=== PATIENT | female | born 1995 | race Two or more races ===

== ENCOUNTER 2018-05-17 12:24 | Emergency (ER) | payer SELFPAY ==
[~2018-05-17] VITALS: Ht 154.9 cm; Wt 72.6 kg
[2018-05-17] MEDS ORDERED: LIDO:MAALOX 1:1 20 ML SINGLE DOSE. SWSW ONE (13:15)
--- NOTE | 2018-05-17 13:29 | PHYS DOC ---
Past Medical History Past Medical History: No Pertinent History Past Surgical History: No Surgical History Alcohol Use: None Drug Use: None Adult General Chief Complaint Chief Complaint: ABDOMINAL PAIN HPI HPI Patient is a 23 year old female presents with chief complaint of upper abdominal pain intermittent 2 month constant 12 hours described as sharp worse after eating associated with nausea does come and random sometimes nonradiating no fever no dysuria no chest pain no other symptoms. No previous surgical history Review of Systems Review of Systems Constitutional: Denies fever or chills [] Eyes: Denies change in visual acuity, redness, or eye pain [] HENT: Denies nasal congestion or sore throat [] Respiratory: Denies cough or shortness of breath [] Musculoskeletal: Denies back pain or joint pain [] Integument: Denies rash or skin lesions [] Neurologic: Denies headache, focal weakness or sensory changes [] Endocrine: Denies polyuria or polydipsia [] All other systems were reviewed and found to be within normal limits, except as documented in this note. Current Medications Current Medications Current Medications Medications (Trade) Dose Ordered Sig/Leonie Start Time Stop Time Status Last Admin Dose Admin Multi-Ingredient Mouthwash/Gargle (Gi Cocktail) 20 ml 1X ONCE 05/17/18 13:15 05/17/18 13:16 DC 05/17/18 13:51 20 ML Allergies Allergies Allergies Coded Allergies Type Severity Reaction Last Updated Verified No Known Drug Allergies 05/19/15 No Physical Exam Physical Exam Constitutional: Well developed, well nourished, no acute distress, non-toxic appearance. [] HENT: Normocephalic, atraumatic, bilateral external ears normal, oropharynx moist, no oral exudates, nose normal. [] Eyes: PERRLA, EOMI, conjunctiva normal, no discharge. [] Neck: Normal range of motion, no tenderness, supple, no stridor. [] Cardiovascular:Heart rate regular rhythm, no murmur [] Lungs & Thorax: Bilateral breath sounds clear to auscultation [] Abdomen: Bowel sounds normal, soft, epigatric tenderness, no masses, no pulsatile masses. [] neg murphys Skin: Warm, dry, no erythema, no rash. [] Back: No tenderness, no CVA tenderness. [] Extremities: No tenderness, no cyanosis, no clubbing, ROM intact, no edema. [] Neurologic: Alert and oriented X 3, normal motor function, normal sensory function, no focal deficits noted. [] Psychologic: Affect normal, judgement normal, mood normal. [] Current Patient Data Vital Signs Vital Signs Date Time Temp Pulse Resp B/P (MAP) Pulse Ox O2 Delivery O2 Flow Rate FiO2 05/17/18 12:40 97.7 98 18 123/84 (97) 100 Room Air 97.7 Lab Values Laboratory Tests Test 05/17/18 12:49 05/17/18 13:40 POC Urine HCG, Qualitative Hcg negative (Negative) White Blood Count 10.5 x10^3/uL (4.0-11.0) Red Blood Count 4.96 x10^6/uL (3.50-5.40) Hemoglobin 14.4 g/dL (12.0-15.5) Hematocrit 42.5 % (36.0-47.0) Mean Corpuscular Volume 86 fL (79-100) Mean Corpuscular Hemoglobin 29 pg (25-35) Mean Corpuscular Hemoglobin Concent 34 g/dL (31-37) Red Cell Distribution Width 14.3 % (11.5-14.5) Platelet Count 201 x10^3/uL (140-400) Neutrophils (%) (Auto) 77 % (31-73) H Lymphocytes (%) (Auto) 19 % (24-48) L Monocytes (%) (Auto) 3 % (0-9) Eosinophils (%) (Auto) 1 % (0-3) Basophils (%) (Auto) 0 % (0-3) Neutrophils # (Auto) 8.1 x10^3uL (1.8-7.7) H Lymphocytes # (Auto) 1.9 x10^3/uL (1.0-4.8) Monocytes # (Auto) 0.3 x10^3/uL (0.0-1.1) Eosinophils # (Auto) 0.1 x10^3/uL (0.0-0.7) Basophils # (Auto) 0.0 x10^3/uL (0.0-0.2) Sodium Level 140 mmol/L (136-145) Potassium Level 3.9 mmol/L (3.5-5.1) Chloride Level 104 mmol/L (98-107) Carbon Dioxide Level 24 mmol/L (21-32) Anion Gap 12 (6-14) Blood Urea Nitrogen 10 mg/dL (7-20) Creatinine 0.6 mg/dL (0.6-1.0) Estimated GFR (Cockcroft-Gault) 123.9 BUN/Creatinine Ratio 17 (6-20) Glucose Level 95 mg/dL (70-99) Calcium Level 9.6 mg/dL (8.5-10.1) Total Bilirubin 0.4 mg/dL (0.2-1.0) Aspartate Amino Transferase (AST) 15 U/L (15-37) Alanine Aminotransferase (ALT) 17 U/L (14-59) Alkaline Phosphatase 118 U/L (46-116) H Total Protein 8.6 g/dL (6.4-8.2) H Albumin 4.0 g/dL (3.4-5.0) Albumin/Globulin Ratio 0.9 (1.0-1.7) L Lipase 90 U/L (73-393) Laboratory Tests 05/17/18 13:40 Laboratory Tests 05/17/18 13:40 EKG EKG [] Radiology/Procedures Radiology/Procedures [] Impressions: Impression: Polyp within the gallbladder likely hyperplastic. Ultrasound exam in 6 months assess stability is recommended. No acute process. Electronically signed by: Miguel Muir MD (05/17/2018 1:54 PM) [id number] DICTATED and SIGNED BY: GREGORIO RAMIREZ MD DATE: 05/17/18 1351 Course & Med Decision Making Course & Med Decision Making Pertinent Labs and Imaging studies reviewed. (See chart for details) 23-year-old male present with equal in upper abdominal discomfort lab workup and ultrasound is essentially unremarkable. POLYP noted advised follow-up within 6 months she understands trial of omeprazole return precautions were reviewed and she voiced understanding. Likely gastritis[] Dragon Disclaimer Dragon Disclaimer This electronic medical record was generated, in whole or in part, using a voice recognition dictation system. Departure Departure Impression: Primary Impression: Gastritis Disposition: 01 HOME, SELF-CARE Condition: STABLE Referrals: NO PCP (PCP) Scripts Omeprazole (OMEPRAZOLE) 20 Mg Tablet.dr 1 TAB PO DAILY, #30 TAB 3 Refills Prov: VENU COON MD 05/17/18 VENU COON MD May 17, 2018 13:29
[2018-05-17 13:55] LABS: BASO % 0 % (0-3); EOS # 0.1 x10^3/uL (0.0-0.7); EOS % 1 % (0-3); HEMATOCRIT 42.5 % (36.0-47.0); HEMOGLOBIN 14.4 g/dL (12.0-15.5); LYMPH # 1.9 x10^3/uL (1.0-4.8); LYMPH % 19 % (24-48); MEAN CORPUSCULAR HEMOGLOBIN 29 pg (25-35); MEAN CORPUSCULAR HGB CONC 34 g/dL (31-37); MEAN CORPUSCULAR VOLUME 86 fL (79-100); MONO # 0.3 x10^3/uL (0.0-1.1); MONO % 3 % (0-9); NEUT # 8.1 x10^3uL (1.8-7.7); NEUT % 77 % (31-73); PLATELET COUNT 201 x10^3/uL (140-400); RED BLOOD COUNT 4.96 x10^6/uL (3.50-5.40); RED CELL DISTRIBUTION WIDTH 14.3 % (11.5-14.5); WHITE BLOOD COUNT 10.5 x10^3/uL (4.0-11.0)
--- NOTE | 2018-05-17 13:58 | RAD ---
Examination: ABDOMEN LTD History: RUQ PAIN Comparison/Correlation: None Findings: Limited right upper quadrant ultrasound exam was performed. Portal venous flow is normal. Common bile duct diameter of 0.4 cm is present. No intrahepatic biliary dilatation. Hepatic echotexture is normal. There is no pericholecystic fluid. Gallbladder wall thickness is normal. Polyp within the gallbladder is present measuring 0.6 cm x 0.7 cm x 1 cm. Right kidney measures 10 cm x 5.5 cm 4.5 cm. No right hydronephrosis. Proximal pancreas is normal. Distal pancreas is obscured by bowel gas. Impression: Polyp within the gallbladder likely hyperplastic. Ultrasound exam in 6 months assess stability is recommended. No acute process. Electronically signed by: Miguel Muir MD (05/17/2018 1:54 PM) [id number]
[2018-05-17 14:11] LABS: CALCIUM 9.6 mg/dL (8.5-10.1); CREATININE 0.6 mg/dL (0.6-1.0); GFR 123.9; POTASSIUM 3.9 mmol/L (3.5-5.1)
[2018-05-17 14:17] LABS: ALBUMIN/GLOBULIN RATIO 0.9 (1.0-1.7); TOTAL BILIRUBIN 0.4 mg/dL (0.2-1.0); TOTAL PROTEIN 8.6 g/dL (6.4-8.2)
[2018-05-17] MEDS ORDERED: OMEP20TA8 PO (14:46)
[2018-05-17 16:10] VITALS: BP 108/77
== END 2018-05-17 16:33 | disposition home or self-care (01) ==
LOC: ER 12:24
DX: K29.70 Gastritis, unspecified, without bleeding (principal)
CPT/HCPCS: 36415; 76705; 80053; 81025; 83690; 85025; 99284-25

== ENCOUNTER 2018-10-22 21:17 | Emergency (ER) | payer SELFPAY ==
[~2018-10-22] VITALS: Ht 154.9 cm; Wt 74.8 kg
[~2018-10-22 21:17] MED LIST: OMEP20TA8 PO
[2018-10-22] MEDS ORDERED: KETOROLAC 15 MG/ML VIAL. IV ONE (22:00)
[2018-10-22] MEDS ORDERED: ONDANSETRON PF 4 MG/2 ML VIAL. IV ONE (22:00)
[2018-10-22 22:14] LABS: BILIRUBIN,URINE NEGATIVE (NEG); CLARITY,URINE CLEAR; COLOR,URINE YELLOW; NITRITE,URINE NEGATIVE (NEG); PH,URINE 5.5; PROTEIN,URINE NEGATIVE (NEG-TRACE)
[2018-10-22 22:22] LABS: BASO % 0 % (0-3); EOS # 0.1 x10^3/uL (0.0-0.7); EOS % 1 % (0-3); HEMATOCRIT 40.1 % (36.0-47.0); HEMOGLOBIN 13.4 g/dL (12.0-15.5); LYMPH # 2.5 x10^3/uL (1.0-4.8); LYMPH % 24 % (24-48); MEAN CORPUSCULAR HEMOGLOBIN 29 pg (25-35); MEAN CORPUSCULAR HGB CONC 34 g/dL (31-37); MEAN CORPUSCULAR VOLUME 87 fL (79-100); MONO # 0.4 x10^3/uL (0.0-1.1); MONO % 4 % (0-9); NEUT # 7.2 x10^3uL (1.8-7.7); NEUT % 70 % (31-73); PLATELET COUNT 183 x10^3/uL (140-400); RED BLOOD COUNT 4.61 x10^6/uL (3.50-5.40); RED CELL DISTRIBUTION WIDTH 13.8 % (11.5-14.5); WHITE BLOOD COUNT 10.2 x10^3/uL (4.0-11.0)
[2018-10-22 22:29] LABS: RBC,URINE 0 /HPF (0-2)
[2018-10-22 22:30] LABS: BACTERIA,URINE FEW /HPF (0-FEW); SQUAMOUS EPITHELIAL CELL,UR MOD /LPF
[2018-10-22 22:33] LABS: GFR 68.7
[2018-10-22 22:39] LABS: ALBUMIN 3.6 g/dL (3.4-5.0); ALBUMIN/GLOBULIN RATIO 0.9 (1.0-1.7); TOTAL BILIRUBIN 0.3 mg/dL (0.2-1.0); TOTAL PROTEIN 7.7 g/dL (6.4-8.2)
[2018-10-22] MEDS ORDERED: fentaNYL PF VIAL 100 MCG/2 ML VIAL IV ONE (23:45)
[2018-10-22] MEDS ORDERED: HYDR-3164 PO (23:53)
--- NOTE | 2018-10-22 23:58 | PHYS DOC ---
Past Medical History Past Medical History: No Pertinent History Past Surgical History: No Surgical History Alcohol Use: None Drug Use: None Adult General Chief Complaint Chief Complaint: PELVIC PAIN HPI HPI Patient is a 23 year old f p/w chief complaint of abdominal pain onset 30 minutes prior to arrival she had this yesterday but it went away on its own. It happened when she was changing the diaper for child. No vaginal discharge no vaginal bleeding no fever mild nausea no prior abdominal surgeries at all. Last menstrual cycle Was 2 weeks ago. Review of Systems Review of Systems Constitutional: Denies fever or chills [] Eyes: Denies change in visual acuity, redness, or eye pain [] HENT: Denies nasal congestion or sore throat [] Respiratory: Denies cough or shortness of breath [] Cardiovascular: Integument: Denies rash or skin lesions [] Neurologic: Denies headache, focal weakness or sensory changes [] Endocrine: Denies polyuria or polydipsia [] All other systems were reviewed and found to be within normal limits, except as documented in this note. Current Medications Current Medications Current Medications Medications (Trade) Dose Ordered Sig/Leonie Start Time Stop Time Status Last Admin Dose Admin Fentanyl Citrate (Fentanyl 2ml Vial) 50 mcg 1X ONCE 10/22/18 23:45 10/22/18 23:46 DC Ketorolac Tromethamine (Toradol 15mg Vial) 15 mg 1X ONCE 10/22/18 22:00 10/22/18 22:01 DC 10/22/18 22:10 15 MG Ondansetron HCl (Zofran) 4 mg 1X ONCE 10/22/18 22:00 10/22/18 22:01 DC 10/22/18 22:10 4 MG Allergies Allergies Allergies Coded Allergies Type Severity Reaction Last Updated Verified No Known Drug Allergies 05/19/15 No Physical Exam Physical Exam Constitutional: Well developed, well nourished, no acute distress, non-toxic appearance. [] HENT: Normocephalic, atraumatic, bilateral external ears normal, oropharynx moist, no oral exudates, nose normal. [] Eyes: PERRLA, EOMI, conjunctiva normal, no discharge. [] Neck: Normal range of motion, no tenderness, supple, no stridor. [] Cardiovascular:Heart rate regular rhythm, no murmur [] Lungs & Thorax: Bilateral breath sounds clear to auscultation [] Abdomen: Bowel sounds normal, soft, suprapubic but not McBurney's also some left lower quadrant tenderness, no masses, no pulsatile masses. [] Skin: Warm, dry, no erythema, no rash. [] Back: No tenderness, no CVA tenderness. [] Pelvic exam shows closed os no discharge there is left adnexal tenderness present Extremities: No tenderness, no cyanosis, no clubbing, ROM intact, no edema. [] Neurologic: Alert and oriented X 3, normal motor function, normal sensory function, no focal deficits noted. [] Psychologic: Affect normal, judgement normal, mood normal. [] Current Patient Data Vital Signs Vital Signs Date Time Temp Pulse Resp B/P (MAP) Pulse Ox O2 Delivery O2 Flow Rate FiO2 10/22/18 21:30 98.9 95 20 131/79 (96) 100 Room Air 98.9 Lab Values Laboratory Tests Test 10/22/18 21:36 10/22/18 21:37 10/22/18 22:05 Urine Collection Type Unknown Urine Color Yellow Urine Clarity Clear Urine pH 5.5 Urine Specific [place] >=1.030 Urine Protein Negative mg/dL (NEG-TRACE) Urine Glucose (UA) Negative mg/dL (NEG) Urine Ketones (Stick) Trace mg/dL (NEG) Urine Blood Negative (NEG) Urine Nitrite Negative (NEG) Urine Bilirubin Negative (NEG) Urine Urobilinogen Dipstick 1.0 mg/dL (0.2 mg/dL) Urine Leukocyte Esterase Negative (NEG) Urine RBC 0 /HPF (0-2) Urine WBC 1-4 /HPF (0-4) Urine Squamous Epithelial Cells Mod /LPF Urine Bacteria Few /HPF (0-FEW) Urine Mucus Mod /LPF POC Urine HCG, Qualitative Hcg negative (Negative) White Blood Count 10.2 x10^3/uL (4.0-11.0) Red Blood Count 4.61 x10^6/uL (3.50-5.40) Hemoglobin 13.4 g/dL (12.0-15.5) Hematocrit 40.1 % (36.0-47.0) Mean Corpuscular Volume 87 fL (79-100) Mean Corpuscular Hemoglobin 29 pg (25-35) Mean Corpuscular Hemoglobin Concent 34 g/dL (31-37) Red Cell Distribution Width 13.8 % (11.5-14.5) Platelet Count 183 x10^3/uL (140-400) Neutrophils (%) (Auto) 70 % (31-73) Lymphocytes (%) (Auto) 24 % (24-48) Monocytes (%) (Auto) 4 % (0-9) Eosinophils (%) (Auto) 1 % (0-3) Basophils (%) (Auto) 0 % (0-3) Neutrophils # (Auto) 7.2 x10^3uL (1.8-7.7) Lymphocytes # (Auto) 2.5 x10^3/uL (1.0-4.8) Monocytes # (Auto) 0.4 x10^3/uL (0.0-1.1) Eosinophils # (Auto) 0.1 x10^3/uL (0.0-0.7) Basophils # (Auto) 0.0 x10^3/uL (0.0-0.2) Sodium Level 140 mmol/L (136-145) Potassium Level 4.0 mmol/L (3.5-5.1) Chloride Level 103 mmol/L (98-107) Carbon Dioxide Level 28 mmol/L (21-32) Anion Gap 9 (6-14) Blood Urea Nitrogen 15 mg/dL (7-20) Creatinine 1.0 mg/dL (0.6-1.0) Estimated GFR (Cockcroft-Gault) 68.7 BUN/Creatinine Ratio 15 (6-20) Glucose Level 115 mg/dL (70-99) H Calcium Level 9.0 mg/dL (8.5-10.1) Total Bilirubin 0.3 mg/dL (0.2-1.0) Aspartate Amino Transferase (AST) 15 U/L (15-37) Alanine Aminotransferase (ALT) 14 U/L (14-59) Alkaline Phosphatase 88 U/L (46-116) Total Protein 7.7 g/dL (6.4-8.2) Albumin 3.6 g/dL (3.4-5.0) Albumin/Globulin Ratio 0.9 (1.0-1.7) L Laboratory Tests 10/22/18 22:05 Laboratory Tests 10/22/18 22:05 Microbiology 10/22/18 Wet Prep - Final, Complete EKG EKG [] Radiology/Procedures Radiology/Procedures [] Impressions: Wet read from the radiologist shows vascular flow seen to both ovaries moderate free fluid cystic lesion left ovary measuring up to 32 mm final read is pending due to PACs is down Course & Med Decision Making Course & Med Decision Making Pertinent Labs and Imaging studies reviewed. (See chart for details) []23-year-old female presenting with presenting with chief complaint of lower pelvic pain fairly sudden onset ultrasound shows ovarian cyst with good flow patient's pain is better not all the way resolved but much better after Toradol we added a dose of fentanyl. Patient really does not have any focal McBurney's point tenderness I think given the adnexal tenderness in the low pelvic pain is much more likely to be symptomatic ovarian cyst. I asked her to come back for any change in the quality or location of her pain and fever unable to take food by mouth. Otherwise take pain medication follow-up with [facility] for follow-up with her ovarian cyst return precautions discussed and she voiced understanding Uvaldo Disclaimer Uvaldo Disclaimer This electronic medical record was generated, in whole or in part, using a voice recognition dictation system. Departure Departure Impression: Primary Impression: Ovarian cyst Disposition: HOME, SELF-CARE Condition: STABLE Referrals: EBEN GALLEGOS Jr, MD Patient Instructions: Ovarian Cyst Additional Instructions: follow up for ovarian cyst in 6 weeks Scripts Hydrocodone/Apap 5-325 (NORCO 5-325 TABLET) 1 Each Tablet 1-2 EACH PO PRN Q6HRS PRN for PAIN, #15 as needed for pain Prov: VENU COON MD 10/22/18 VENU COON MD Oct 22, 2018 23:58
[2018-10-23 00:25] VITALS: BP 121/60
--- NOTE | 2018-10-24 00:33 | RAD ---
INDICATION: Acute pelvic pain COMPARISON: None. TECHNIQUE: Grayscale and color ultrasound images uterus and adnexa. Transabdominal and transvaginal images obtained. FINDINGS: Uterus: 89 x 53 x 36 mm. Endometrial Stripe: 4 mm. Right Ovary: 25 x 22 x 13 mm. Left Ovary: 46 x 35 x 24 mm. Vascular flow identified to bilateral ovaries. Intrauterine device is identified within the endometrial stripe. moderate free fluid. IMPRESSION: 1. Vascular flow seen to the ovaries. 2. Cystic lesion with thick wall left ovary measuring up to 32 x 28 x 10 mm. 3. Moderate free fluid in the pelvis. 4. Intrauterine device is identified within the endometrial stripe. Electronically signed by: Ashok Carson MD (10/24/2018 12:30 AM) [id number]
[2018-10-24 16:11] LABS: GC PROBE Negative (Negative)
== END 2018-10-23 00:31 | disposition home or self-care (01) ==
LOC: ER 21:17
DX: N83.209 Unspecified ovarian cyst, unspecified side (principal)
CPT/HCPCS: 36415; 76830; 76856; 80053; 81001; 81025; 85025; 87491; 87591; 96374; 96375; 99285; J1885; J2405; J3010; Q0111

== ENCOUNTER 2020-12-15 22:44 | Emergency (ER) | payer SELFPAY ==
[~2020-12-15 22:44] MED LIST changes: +HYDR-3164 PO
[2020-12-16 05:08] VITALS: BP 129/84
== END 2020-12-16 05:08 | disposition left against medical advice (07) ==
LOC: ER 22:44
DX: R10.9 Unspecified abdominal pain (principal); Z53.21 Procedure and treatment not carried out due to patient leaving prior to being seen by health care provider
CPT/HCPCS: 81025

== ENCOUNTER 2021-02-01 00:15 | Emergency (ER) | payer SELFPAY ==
[~2021-02-01] VITALS: Ht 154.9 cm; Wt 84.2 kg
[2021-02-01] MEDS ORDERED: FAMO-63 PO (03:02)
--- NOTE | 2021-02-01 03:03 | PHYS DOC ---
Past Medical History Past Medical History: No Pertinent History Past Surgical History: No Surgical History Smoking Status: Never Smoker Alcohol Use: None Drug Use: None General Adult EDM: Chief Complaint: ABDOMINAL PAIN HPI: HPI: 25-year-old female presents to the emergency department complaining of abdominal pain in her epigastric region that occurred around 2200 last night after she ate some spicy food. She reports that she has had similar symptoms in the past and has dealt with acid reflux in the past. She denies any other symptoms today. Pain made worse by spicy food not made better by anything. She has not taken anything for her symptoms tonight. She is currently on her menstrual cycle. The patient denies nausea, vomiting, fever, chills, chest pain, shortness of breath, urinary symptoms, cough, recent trauma, or any other complaints. Review of Systems: Review of Systems: Review of systems is otherwise negative except for what was mentioned in HPI Heart Score: C/O Chest Pain: No Allergies: Allergies: Allergies Coded Allergies Type Severity Reaction Last Updated Verified No Known Drug Allergies 05/19/15 No Physical Exam: PE: Constitutional: No acute distress, non-toxic appearance. Neck: Normal range of motion, supple, no stridor. Cardiovascular: Heart rate regular rhythm. 2+ radial pulses Lungs & Thorax: No respiratory distress, symmetrical expansion. Abdomen: Soft, no tenderness Skin: Warm, dry. Extremities: No tenderness, no cyanosis, ROM intact, no edema. Neurologic: Alert and oriented X 3, normal motor function, normal sensory function, no focal deficits noted. Non ataxic gait. GCS 15. Psychologic: Affect normal, judgment normal, mood normal. Current Patient Data: Labs: Laboratory Tests Test 02/01/21 02:47 POC Urine HCG, Qualitative Hcg negative (Negative) My Orders - VENU BRUCE DO Procedure Category Date Status Time Lido:Maalox 1:1 (Gi PHA 02/01/21 Logged Cocktail) 03:00 Famotidine (Pepcid) PHA 02/01/21 Logged 03:00 Course & Med Decision Making: Course & Med Decision Making Patient gives consistent story for gastroesophageal reflux disease, she was treated with a GI cocktail and Pepcid with reduction of symptoms. Patient will be prescribed Pepcid for home Departure Departure Impression: Primary Impression: GERD (gastroesophageal reflux disease) Disposition: HOME / SELF CARE / HOMELESS Condition: STABLE Referrals: NO PCP (PCP) Patient Instructions: Diet for Gastroesophageal Reflux Disease, Adult, [id number] Additional Instructions: You were seen in the emergency department for abdominal pain and reflux. We are putting you on a medication to reduce your stomach acid levels. You should follow up with the medicine clinic or your primary medical doctor for further evaluation and treatment. Return to the ED if you develop worsening pain, fever, black or bloody stools, or any other new or concerning symptoms. The medicine we started you on can take a few days to work fully. Scripts Famotidine (PEPCID) 20 Mg Tablet 20 MG PO BID, #30 TAB Prov: VENU BRUCE DO 02/01/21 VENU BRUCE DO Feb 01, 2021 03:03
[2021-02-01 03:10] VITALS: BP 127/70
[2021-02-01] MEDS ORDERED: FAMOTIDINE 20 MG TABLET. PO ONE (03:30)
[2021-02-01] MEDS ORDERED: LIDO:MAALOX 1:1 20 ML SINGLE DOSE. SWSW ONE (03:30)
== END 2021-02-01 03:20 | disposition home or self-care (01) ==
LOC: ER 00:15
DX: K21.9 Gastro-esophageal reflux disease without esophagitis (principal)
CPT/HCPCS: 81025; 99283